=== PATIENT | female | born 1945 | race Caucasian/White ===

== ENCOUNTER 2016-12-07 09:00 | Outpatient (RCR) | payer OTHER | END 2016-12-29 | disposition home or self-care (01) | LOC: PTY 09:00 | PROVIDERS: ATTEND Internal Medicine | DX: M54.2 Cervicalgia (principal); G89.29 Other chronic pain | CPT/HCPCS: 97110; 97140; 97162; G0283 ==

== ENCOUNTER 2016-12-30 09:46 | Outpatient (RCR) | payer OTHER | END 2017-01-28 | disposition home or self-care (01) | LOC: PTY 09:46 | PROVIDERS: ATTEND Internal Medicine | DX: M54.2 Cervicalgia (principal); G89.29 Other chronic pain ==

== ENCOUNTER 2017-02-02 10:52 | Outpatient (RCR) | payer OTHER | END 2017-02-28 | disposition home or self-care (01) | LOC: PTY 10:52 | PROVIDERS: ATTEND Internal Medicine | DX: M54.2 Cervicalgia (principal); G89.29 Other chronic pain ==

== ENCOUNTER 2017-03-30 10:10 | Outpatient (RCR) | payer OTHER | END 2017-03-31 | disposition home or self-care (01) | LOC: PTY 10:10 | PROVIDERS: ATTEND Internal Medicine | DX: M54.2 Cervicalgia (principal); G89.29 Other chronic pain; M40.03 Postural kyphosis, cervicothoracic region; M47.812 Spondylosis without myelopathy or radiculopathy, cervical region; M48.02 Spinal stenosis, cervical region | CPT/HCPCS: 97110; 97140; G0283 ==

== ENCOUNTER 2017-04-28 11:00 | Outpatient (RCR) | payer OTHER | END 2017-04-30 | disposition home or self-care (01) | LOC: PTY 11:00 | PROVIDERS: ATTEND Internal Medicine | DX: M54.2 Cervicalgia (principal); G89.29 Other chronic pain; M48.00 Spinal stenosis, site unspecified | CPT/HCPCS: 97110; 97140; G0283 ==

== ENCOUNTER 2017-05-24 11:00 | Outpatient (RCR) | payer OTHER | END 2017-05-31 | disposition home or self-care (01) | LOC: PTY 11:00 | PROVIDERS: ATTEND Internal Medicine | DX: M54.2 Cervicalgia (principal); G89.29 Other chronic pain; M40.03 Postural kyphosis, cervicothoracic region | CPT/HCPCS: 97110; 97140; G0283 ==

== ENCOUNTER 2018-04-05 11:12 | Day surgery (SDC) | payer OTHER ==
[~2018-04-05] VITALS: Ht 157.5 cm; Wt 46.7 kg
[~2018-04-05 11:12] MED LIST: Cyclopentolate 1% Opth Sol 2ml ONE; Phenylephrine 2.5% Op 2ml Soln ONE
[2018-04-05] MEDS: Cyclopentolate 1% Opth Sol 2ml RIGHT EYE SCH ×3 (11:42→12:04)
[2018-04-05] MEDS: Phenylephrine 2.5% Op 2ml Soln RIGHT EYE SCH ×3 (11:42→12:04)
[2018-04-05 12:05] VITALS: BP 120/77
[2018-04-05] MEDS ORDERED: CITRACAL + D E1 EACH PO (12:10)
[2018-04-05] MEDS ORDERED: VITAMIN B122500 MCG PO (12:10)
[2018-04-05] MEDS ORDERED: CITRUCEL500 MG PO (12:10)
[2018-04-05] MEDS ORDERED: COMBIGAN EYE DRO5 ML OP (12:10)
[2018-04-05] MEDS ORDERED: PREDNISOLONE ACE5 M1 OP (12:10)
[2018-04-05] MEDS ORDERED: SIMVASTATIN20 MG ORAL (12:10)
[2018-04-05] MEDS ORDERED: Maxitrol Opth Oint 3.5gm ONE (12:20)
[2018-04-05] MEDS ORDERED: EPINEPHrine 1mg/1ml Amp ONE (12:20)
[2018-04-05] MEDS ORDERED: Goniosol 2.5% Opth Soln - 15ml ONE (12:20)
[2018-04-05] MEDS ORDERED: Lidocaine 2% MPF 5ml Vial INJ ONE (12:20)
[2018-04-05] MEDS ORDERED: Kenalog-40 1ml Vial ONE (12:20)
[2018-04-05] MEDS ORDERED: BSS 500ml btl ONE (12:21)
[2018-04-05] MEDS ORDERED: Tetracaine 0.5% Opth 4ml Soln ONE (12:21)
[2018-04-05] MEDS ORDERED: Povidone-Iodine 5% opth solution ONE (12:21)
[2018-04-05] MEDS ORDERED: Dexamethasone 4mg/ml vial ONE (12:21)
[2018-04-05] MEDS ORDERED: BSS 15ml BTL ONE (12:21)
[2018-04-05] MEDS ORDERED: Bupivacaine 0.75% 30ml vial INJ ONE (12:22)
[2018-04-05] MEDS ORDERED: Sterile Water Irrig 1000ml IRRIG ONE (12:30)
[2018-04-05] MEDS ORDERED: NS Irrig 1000ml ONE (12:30)
[2018-04-05] MEDS ORDERED: LR 1000ml ONE (12:30)
--- NOTE | 2018-04-05 12:32 | Pre-Procedure Note/Attestation ---
Pre-Procedure Note/Attestation Complete Prior to Procedure Planned Procedure: right Procedure Narrative: 23G PPV/secondary IOL right eye Indications for Procedure Pre-Operative Diagnosis: aphakia right eye Attestation I attest that I discussed the nature of the procedure; its benefits; risks and complications; and alternatives (and the risks and benefits of such alternatives ), prior to the procedure, with the patient (or the patient's legal sales training representative). I attest that, if there was a reasonable possibility of needing a blood transfusion, the patient (or the patient's legal sales training representative) was given the [facility] standardized written summary, pursuant to the Sergio Lucia Blood Safety Act ([place] Health and Safety Code # 1645, as amended). I attest that I re-evaluated the patient just prior to the surgery and that there has been no change in the patient's H&P, except as documented below: MIKALA VELASCO M.D. Apr 05, 2018 12:32
--- NOTE | 2018-04-05 12:41 | Anethesia Preoperative Eval ---
Anesthesia Pre-op PMH/ROS General Date of Evaluation: Apr 05, 2018 Time of Evaluation: 12:39 Anesthesiologist: Emily Hou CRNA ASA Score: ASA 2 Mallampati Score Class I : Soft palate, uvula, fauces, pillars visible Class II: Soft palate, uvula, fauces visible Class III: Soft palate, base of uvula visible Class IV: Only hard plate visible Mallampati Classification: Class I Surgeon: Jose C Diagnosis: Aphakia Surgical Procedure: par plana vitrectomy IOL insertion Anesthesia History: none Family History: no anesthesia problems Allergies: Coded Allergies: PENICILLINS (Verified Allergy, Severe, 04/05/18) severe rash, high fever, lymph nodes swelling TERBINAFINE (Verified Allergy, Severe, 04/05/18) rash Past Medical History Cardiovascular: Reports: other - Hypercholesterolemia; Denies: HTN, CAD, [place], valve dz, arrhythmia Pulmonary: Denies: asthma, COPD, [place], other Gastrointestinal/Genitourinary: Reports: GERD; Denies: CRI, ESRD, other Neurologic/Psychiatric: Denies: dementia, CVA, depression/anxiety, TIA, other Endocrine: Denies: DM, hypothyroidism, steroids, other HEENT: Reports: cataract (L), cataract (R); Denies: glaucoma, [place] (L), [place] (R), other Hematology/Immune: Denies: anemia, DVT, bleeding disorder, other Musculoskeletal/Integumentary: Reports: other - cervical spinal stenosis ; Denies: OA, RA, DJD, DDD, edema PMH Narrative: as above PSxH Narrative: multiple cataract surgeries Anesthesia Pre-op Phys. Exam Physician Exam Last Vital Signs Date Time Temp Pulse Resp B/P (MAP) Pulse Ox O2 Delivery O2 Flow Rate FiO2 04/05/18 12:05 97.6 65 17 120/77 (91) 100 97.6 04/05/18 11:56 Room Air Constitutional: NAD Neurologic: CN 2-12 intact Cardiovascular: RRR Respiratory: CTA Gastrointestinal: S/NT/ND Airway Exam Mallampati Score: Class II MO: full Neck: cervical stenosis TMD: > 3 FB ROM: full Teeth: intact Dentures: no upper, no lower Anesthesia Pre-op A/P Risk Assessment & Plan Assessment: 72 yo female otherwise healthy, hx of aphakia needing pars plana vitrectoy, IOL insertion Plan: MAC Status Change Before Surgery: No Pre-Antibiotics Given Within 1 Hr of Incision: No Emily Hou CRNA Apr 05, 2018 12:40
[2018-04-05] MEDS ORDERED: Midazolam 2mg/2ml Inj ONE (12:44)
[2018-04-05] MEDS ORDERED: Propofol 200mg/20ml IV ONE (12:44)
--- NOTE | 2018-04-05 13:20 | Brief Operative Note ---
Immediate Post Operative Note Operative Note Chief Complaint: blurred vision Pre-op Diagnosis: aphakia right eye Procedure: case canceled due to correct implant not being available Specimen: none Complications: none Fluids: none Implant(s) used?: No MIKALA VELASCO M.D. Apr 05, 2018 13:20
[2018-04-05 13:25] VITALS: BP 108/69
[2018-04-05 13:30] VITALS: BP 123/65
[2018-04-05 13:35] VITALS: BP 116/66
--- NOTE | 2018-04-05 13:40 | Immediate Post-Op Evaluation ---
Immediate Post-Op Evalulation Immediate Post-Op Evalulation Procedure: Cancelled procedure pars plana vitrectomy, IOL insertion Date of Evaluation: Apr 05, 2018 Time of Evaluation: 13:25 IV Fluids: LR 200 ml Blood Pressure Systolic: 108 Blood Pressure Diastolic: 69 Pulse Rate: 72 Respiratory Rate: 16 O2 Sat by Pulse Oximetry: 100 Temperature (Fahrenheit): 97.0 Pain Score (1-10): 0 Nausea: No Vomiting: No Complications none anesthetic complications, case cancelled secondary to implant issues, no surgical case occurred Patient Status: awake, reacts, patent Hydration Status: adequate Given Within 1 Hr of Incision: Emily Sandy CRNA Apr 05, 2018 13:40
[2018-04-05 13:45] VITALS: BP_SYST 105; BP_SYST 116; BP_DIAS 69; BP_DIAS 71
--- NOTE | 2018-04-05 22:00 | Operative Note - Dictated ---
DATE OF OPERATION: 04/05/2018 SURGEON: Kumar Woodall M.D. PREOPERATIVE DIAGNOSIS: Aphakia, right eye. POSTOPERATIVE DIAGNOSIS: Aphakia, right eye. PROCEDURE: Procedure canceled due to the unavailability of lens implant. HISTORY OF PRESENT ILLNESS: The patient is a 72-year-old female with a history of complicated cataract surgery in her right eye and choroidal detachment. The choroidal detachments have resolved; however, she has blurred vision due to aphakia and requested a secondary lens implant. The findings were discussed with the patient as well as the risks, benefits, and alternatives to the above-named procedure and the patient wishes to proceed with surgery. The patient understands the risks include, but are not limited to, loss of vision and loss of the eye. Informed consent was obtained. DESCRIPTION OF THE PROCEDURE: On the day of the procedure, the right eye was noted to be the operative eye and marked. The patient received 3 sets of the standard preoperative eye drops in the holding area. The patient was then brought to the operating room with appropriate anesthesia monitors were placed. The right eye was again identified as the operative eye. The patient received intravenous sedation administered by the anesthesiologist. During time-out, the lens implant was inspected. It was noted that the expiration date of implant had passed in 03/2018 and another lens of the correct power was not available, a was made also to obtain the lens, correct lens from neighboring surgery centers and which was unsuccessful. Therefore, the procedure was canceled. No incisions or injections have been given. The patient was brought to the postoperative care area in good condition and the situation was explained to the patient and the patient's family. The correct lens had previously been requested by my office. The correct lens was again requested and the patient will be rescheduled appropriately. Kumar Woodall M.D. DR: NEISHA JOB#: [id number] CC:
[2018-04-06 08:58] VITALS: BP 116/69
--- NOTE | 2018-04-06 08:58 | 48 Hour Post Anesthesia Eval ---
Post Anesthesia Evaluation Procedure: Cancelled procedure pars plana vitrectomy, IOL insertion Date of Evaluation: Apr 05, 2018 Time of Evaluation: 13:45 Blood Pressure Systolic: 116 0: 69 Pulse Rate: 6 Respiratory Rate: 16 Temperature (Fahrenheit): 97 O2 Sat by Pulse Oximetry: 99 Airway: patent Nausea: No Vomiting: No Pain Intensity: 0 Hydration Status: adequate Cardiopulmonary Status: stable Mental Status/LOC: patient returned to baseline Follow-up Care/Observations: none Post-Anesthesia Complications: none Follow-up care needed: ready to discharge Emily Hou CRNA Apr 06, 2018 08:58
== END 2018-04-05 14:15 | disposition home or self-care (01) ==
LOC: SUR 11:12
DX: H27.01 Aphakia, right eye (principal); Z53.8 Procedure and treatment not carried out for other reasons; E78.2 Mixed hyperlipidemia; N39.3 Stress incontinence (female) (male); K21.9 Gastro-esophageal reflux disease without esophagitis; M48.02 Spinal stenosis, cervical region; F32.9 Major depressive disorder, single episode, unspecified; D69.2 Other nonthrombocytopenic purpura; I70.0 Atherosclerosis of aorta; I20.9 Angina pectoris, unspecified; M40.203 Unspecified kyphosis, cervicothoracic region; Z85.828 Personal history of other malignant neoplasm of skin
CPT/HCPCS: 66985; J2250; J2704; J7120

== ENCOUNTER 2018-04-12 11:36 | Day surgery (SDC) | payer OTHER ==
[2018-04-12] VITALS (9 sets, daily range): BP systolic 103–130; BP diastolic 67–84
[~2018-04-12] VITALS: Ht 157.5 cm; Wt 46.3 kg
[~2018-04-12 11:36] MED LIST changes: +CITRACAL + D E1 EACH PO; +CITRUCEL500 MG PO; +COMBIGAN EYE DRO5 ML OP; -Cyclopentolate 1% Opth Sol 2ml ONE; +PREDNISOLONE ACE5 M1 OP; -Phenylephrine 2.5% Op 2ml Soln ONE; +SIMVASTATIN20 MG ORAL; +VITAMIN B122500 MCG PO
[2018-04-12] MEDS ORDERED: Cyclopentolate 1% Opth Sol 2ml ONE (12:03)
[2018-04-12] MEDS ORDERED: Phenylephrine 2.5% Op 2ml Soln ONE (12:04)
[2018-04-12] MEDS: Phenylephrine 2.5% Op 2ml Soln RIGHT EYE SCH ×3 (12:17→12:38)
[2018-04-12] MEDS: Cyclopentolate 1% Opth Sol 2ml RIGHT EYE SCH ×3 (12:17→12:38)
[2018-04-12] MEDS ORDERED: fentaNYL 100 mcg/2 mL IV ONE (12:18)
[2018-04-12] MEDS ORDERED: Midazolam 2mg/2ml Inj ONE (12:18)
[2018-04-12] MEDS ORDERED: Lidocaine 1% MPF 10mg/ml 5ml ONE (12:19)
[2018-04-12] MEDS ORDERED: Propofol 200mg/20ml IV ONE (12:19)
[2018-04-12] MEDS ORDERED: Kenalog-40 1ml Vial ONE (12:33)
[2018-04-12] MEDS ORDERED: EPINEPHrine 1mg/1ml Amp ONE (12:33)
[2018-04-12] MEDS ORDERED: Goniosol 2.5% Opth Soln - 15ml ONE (12:33)
[2018-04-12] MEDS ORDERED: Lidocaine 2% MPF 5ml Vial INJ ONE (12:33)
[2018-04-12] MEDS ORDERED: Maxitrol Opth Oint 3.5gm ONE (12:33)
[2018-04-12] MEDS ORDERED: BSS 500ml btl ONE (12:34)
[2018-04-12] MEDS ORDERED: Neosporin Oph Soln 5ml Btl ONE (12:34)
[2018-04-12] MEDS ORDERED: Dexamethasone 4mg/ml vial ONE (12:34)
[2018-04-12] MEDS ORDERED: Bupivacaine 0.75% 30ml vial INJ ONE (12:35)
[2018-04-12] MEDS ORDERED: Acetylcholine Injection (OR) ONE ×2 (12:35→14:46)
[2018-04-12] MEDS ORDERED: Sodium Hyaluronate 10 mg/ml 0.85ml ONE (12:35)
[2018-04-12] MEDS ORDERED: Tetracaine 0.5% Opth 4ml Soln ONE (12:35)
[2018-04-12] MEDS ORDERED: BSS 15ml BTL ONE (12:35)
[2018-04-12] MEDS ORDERED: Povidone-Iodine 5% opth solution ONE (12:36)
--- NOTE | 2018-04-12 12:52 | Anethesia Preoperative Eval ---
Anesthesia Pre-op PMH/ROS General Date of Evaluation: Apr 12, 2018 Time of Evaluation: 13:20 Anesthesiologist: Emily Hou ASA Score: ASA 2 Mallampati Score Class I : Soft palate, uvula, fauces, pillars visible Class II: Soft palate, uvula, fauces visible Class III: Soft palate, base of uvula visible Class IV: Only hard plate visible Mallampati Classification: Class I Surgeon: Jose C Diagnosis: Aphakia Surgical Procedure: Par Plana vitretomy; IOL insertion Anesthesia History: none Family History: no anesthesia problems Allergies: Coded Allergies: PENICILLINS (Verified Allergy, Severe, 04/05/18) severe rash, high fever, lymph nodes swelling TERBINAFINE (Verified Allergy, Severe, 04/05/18) rash Past Medical History Cardiovascular: Reports: other - Hypercholesterolemia; Denies: HTN, CAD, [place], valve dz, arrhythmia Pulmonary: Denies: asthma, COPD, [place], other Gastrointestinal/Genitourinary: Reports: GERD; Denies: CRI, ESRD, other Neurologic/Psychiatric: Denies: dementia, CVA, depression/anxiety, TIA, other Endocrine: Denies: DM, hypothyroidism, steroids, other HEENT: Reports: cataract (L), cataract (R); Denies: glaucoma, [place] (L), [place] (R), other Hematology/Immune: Denies: anemia, DVT, bleeding disorder, other Musculoskeletal/Integumentary: Reports: other - Cervical spinal stenosis; Denies: OA, RA, DJD, DDD, edema PMH Narrative: 72 year old female with aphakia here for pars plana vitrerctomy PSxH Narrative: cataract surgery Anesthesia Pre-op Phys. Exam Physician Exam Last Vital Signs Date Time Temp Pulse Resp B/P (MAP) Pulse Ox O2 Delivery O2 Flow Rate FiO2 04/12/18 12:32 96.9 68 20 103/67 (79) 100 96.9 04/12/18 12:20 Room Air Constitutional: NAD Neurologic: CN 2-12 intact Cardiovascular: RRR Respiratory: CTA Gastrointestinal: S/NT/ND Airway Exam Mallampati Score: Class I MO: full Neck: no limitation or complaints of neurological symtoms with flexion or extensi TMD: > 3 fB ROM: full Teeth: intact Dentures: no upper, no lower Anesthesia Pre-op A/P Studies Pre-op Studies: EKG - NSR Risk Assessment & Plan Assessment: as stated in PMH Plan: MAC Status Change Before Surgery: No Pre-Antibiotics Given Within 1 Hr of Incision: No Emily Hou CRNA Apr 12, 2018 12:52
--- NOTE | 2018-04-12 13:34 | Pre-Procedure Note/Attestation ---
Pre-Procedure Note/Attestation Complete Prior to Procedure Planned Procedure: right Procedure Narrative: 23G PPV/secondary IOL placement right eye Indications for Procedure Pre-Operative Diagnosis: aphakia Attestation I attest that I discussed the nature of the procedure; its benefits; risks and complications; and alternatives (and the risks and benefits of such alternatives ), prior to the procedure, with the patient (or the patient's legal data entry representative). I attest that, if there was a reasonable possibility of needing a blood transfusion, the patient (or the patient's legal data entry representative) was given the [facility] Services standardized written summary, pursuant to the Sergio Lucia Blood Safety Act ([place] Health and Safety Code # 1645, as amended). I attest that I re-evaluated the patient just prior to the surgery and that there has been no change in the patient's H&P, except as documented below: MIKALA VELASCO M.D. Apr 12, 2018 13:34
[2018-04-12] MEDS ORDERED: LR 1000ml ONE (14:00)
[2018-04-12] MEDS ORDERED: Sterile Water Irrig 1000ml IRRIG ONE (14:00)
[2018-04-12] MEDS ORDERED: NS Irrig 1000ml ONE (14:00)
--- NOTE | 2018-04-12 15:03 | Immediate Post-Op Evaluation ---
Immediate Post-Op Evalulation Immediate Post-Op Evalulation Procedure: RIGHT eye pars plana vitrectomy IOL insertion Date of Evaluation: Apr 12, 2018 Time of Evaluation: 15:09 IV Fluids: LR 200 ml Blood Pressure Systolic: 126 Blood Pressure Diastolic: 80 Pulse Rate: 73 Respiratory Rate: 16 O2 Sat by Pulse Oximetry: 99 Temperature (Fahrenheit): 97.0 Pain Score (1-10): 0 Nausea: No Vomiting: No Complications none Patient Status: awake, reacts, patent Hydration Status: adequate Given Within 1 Hr of Incision: Emily Sandy CRNA Apr 12, 2018 15:03
--- NOTE | 2018-04-12 15:11 | Brief Operative Note ---
Immediate Post Operative Note Operative Note Chief Complaint: blurred vision Pre-op Diagnosis: aphakia right eye Procedure: 23G PPV/secondary intraocular lens insertion right eye Post-op Diagnosis: same Post-op Diagnosis: same as pre-op Findings: consistent w/pre-op dx studies Surgeon: Jose C Anesthesia: local Specimen: none Complications: none Condition: stable Fluids: <500cc Estimated Blood Loss: none Drains: none Implant(s) used?: Yes MIKALA VELASCO M.D. Apr 12, 2018 15:11
[2018-04-12] MEDS ORDERED: Norco 5mg/325mg tab ORAL PRN (15:15)
--- NOTE | 2018-04-12 20:15 | Operative Note - Dictated ---
DATE OF OPERATION: 04/12/2018 SURGEON: Kumar Woodall M.D. PREOPERATIVE DIAGNOSIS: Aphakia, right eye. POSTOPERATIVE DIAGNOSIS: Aphakia, right eye. NAME OF OPERATION: A 23-gauge pars plana vitrectomy and secondary intraocular lens implantation, right eye. ANESTHESIA: Local. BLOOD LOSS: None. COMPLICATIONS: None. INDICATIONS: The patient is a 72-year-old female with a history of complicated cataract surgery in the right eye. She requests secondary intraocular lens implantation due to a aphakia to improve her vision. The findings were discussed with the patient as well as the risks, benefits, and alternatives to the above-named procedure and the patient wishes to proceed with surgery. The patient understands the risks include, but are not limited to, loss of vision and loss of the eye. Informed consent was obtained. DESCRIPTION OF THE PROCEDURE: On the day of the procedure, the right eye was noted to be the operative eye and marked. The patient received 3 sets of the standard preoperative eye drops in the holding area. The patient was then brought to the operating room with appropriate anesthesia monitors were placed. The right eye was again identified as the operative eye during time-out. The nonoperative eye was patched and shielded. The operative eye then received a retrobulbar block consisting of 1:1 mixture of 2% lidocaine without epinephrine and 0.75% bupivacaine for a total of 5 mL. Anesthesia and akinesia were noted to have been obtained. The operative eye was then prepped and draped in the usual sterile ophthalmic fashion. A lid speculum was placed in the operative eye. The 23-gauge cannulas were placed with infusion located inferotemporally. A standard 3 port pars plana vitrectomy was then performed. The vitreous skirt was trimmed. Attention was then turned to the anterior segment. A paracentesis was made at the 3 o'clock and 10 o'clock meridians and Kenalog was used to stain any anterior vitreous. This was removed with a cycle of dialysis spatula and the vitreous cutter. Healon was then used to fill the anterior chamber, anterior enlarged of sulcus. A 2.8 mm keratome was then used to make a superior clear corneal incision. A model MA60AC posterior chamber intraocular lens with a power +22 diopters was then inserted into the sulcus and dialed into position with the [place] hook. The clear corneal incision was then sutured using a 10-0 nylon suture. The anterior chamber was then rinsed out with balanced salt solution on a cannula. The paracentesis and the wounds were hydrated and the 22-gauge cannulas were then removed. The sclerotomies were sutured using 7-0 Vicryl. The wounds were checked for leakage and found to be watertight. Intraocular pressure was palpated and found to be within normal limits. The patient then received subconjunctival injections of vancomycin and dexamethasone. The lid speculum and drapes were then removed. Maxitrol ointment and atropine eye drops were applied to the eye. The eye was patched and shielded. The patient tolerated the procedure well and was returned to the postoperative care area in good condition. Kumar Woodall M.D. DR: SHAYE JOB#: [id number] CC:
[2018-04-13 08:04] VITALS: BP 126/76
--- NOTE | 2018-04-13 08:04 | 48 Hour Post Anesthesia Eval ---
Post Anesthesia Evaluation Procedure: RIGHT eye pars plana vitrectomy IOL insertion Date of Evaluation: Apr 12, 2018 Time of Evaluation: 16:45 Blood Pressure Systolic: 126 0: 76 Pulse Rate: 71 Respiratory Rate: 17 Temperature (Fahrenheit): 97.8 O2 Sat by Pulse Oximetry: 98 Airway: patent Nausea: No Vomiting: No Pain Intensity: 0 Hydration Status: adequate Mental Status/LOC: patient returned to baseline Follow-up Care/Observations: none Post-Anesthesia Complications: none Follow-up care needed: ready to discharge Emily Hou CRNA Apr 13, 2018 08:04
== END 2018-04-12 16:35 | disposition home or self-care (01) ==
LOC: SDS 11:36
DX: H27.01 Aphakia, right eye (principal); K21.9 Gastro-esophageal reflux disease without esophagitis; E78.2 Mixed hyperlipidemia; E78.00 Pure hypercholesterolemia, unspecified; R32 Unspecified urinary incontinence; I25.10 Atherosclerotic heart disease of native coronary artery without angina pectoris; M40.202 Unspecified kyphosis, cervical region; D69.2 Other nonthrombocytopenic purpura; Z88.0 Allergy status to penicillin; Z88.8 Allergy status to other drugs, medicaments and biological substances
CPT/HCPCS: 66985; 67036; J0171; J1100; J2250; J2704; J3301; J3370; J3490; V2632; 94003; 94150